=== PATIENT | female | born 1995 | race Caucasian/White ===

== ENCOUNTER 2017-10-25 16:41 | Emergency (ER) | payer MEDICAID, OTHER ==
[~2017-10-25] VITALS: Ht 152.4 cm; Wt 72.7 kg
[~2017-10-25 16:41] MED LIST: IBUP-1984 PO; [UNRECOGNIZED DRUG - OTHER]
[2017-10-25 17:06] LABS: BASOPHILS % (AUTO) 0.4 % (0-1); EOSINOPHILS # (AUTO) 0.2 X10'3 (0-0.9); HEMATOCRIT 40.8 % (35.0-45.0); HEMOGLOBIN 14.6 g/dl (12.0-16.0); LYMPHOCYTES # (AUTO) 4.1 X10'3 (1.1-4.8); LYMPHOCYTES % (AUTO) 35.7 % (21-51); MEAN CORPUSCULAR HGB CONC 35.9 % (33.0-36.5); MEAN CORPUSCULAR VOLUME 94.9 FL (78-98); MEAN PLATELET VOLUME 7.9 FL (7.4-10.4); MONOCYTES # (AUTO) 0.5 X10'3 (0-0.9); NEUTROPHILS # (AUTO) 6.6 X10'3 (1.8-7.7); NEUTROPHILS % (AUTO) 57.9 % (42-75); PLATELET COUNT 279 X10'3 (140-440); RED CELL DISTRIBUTION WIDTH 12.2 % (11.5-14.5); WHITE BLOOD COUNT 11.4 X10'3 (4.5-11.0)
[2017-10-25 17:26] LABS: CLARITY,URINE CLOUDY (Clear); COLOR,URINE YELLOW (Yellow); GLUCOSE, URINE NEGATIVE (Neg); KETONES,URINE NEGATIVE (Neg); LEUKOCYTE ESTERASE ,URINE SMALL (Neg); NITRITES, URINE NEGATIVE (Neg); OCCULT BLOOD,URINE NEGATIVE (Neg); PROTEIN,URINE TRACE mg/dl (Neg); UROBILINOGEN,URINE 0.2 E.U/dL (0.2-1.0)
[2017-10-25 17:27] LABS: ALANINE AMINOTRANSFERASE 27 U/L (12-78); ALBUMIN 4.2 G/DL (3.4-5.0); ALBUMIN/GLOBULIN RATIO 1.2 (1.1-1.5); ALKALINE PHOSPHATASE 71 IU/L (46-116); ANION GAP 9 (8-16); ASPARTATE AMINO TRANSFERASE 16 U/L (10-37); BILIRUBIN,TOTAL 0.4 MG/DL (0.1-1.0); BLOOD UREA NITROGEN 12 MG/DL (7-18); CALCIUM 9.3 MG/DL (8.5-10.1); CHLORIDE 102 MMOL/L (99-107); CREATININE 0.86 MG/DL (0.40-0.90); GLUCOSE 158 MG/DL (70-104); POTASSIUM 3.7 MMOL/L (3.5-5.1); SODIUM 138 MMOL/L (135-145); TOTAL PROTEIN 7.8 G/DL (6.4-8.2); eGFR 81 ML/MIN
[2017-10-25 17:29] LABS: URINE HCG NEGATIVE (NEG)
[2017-10-25 17:40] LABS: UA COLLECTION TYPE CLN CATCH MIDSTREAM
[2017-10-25 17:42] LABS: BACTERIA,URINE 1+ /HPF (Neg); MUCUS STRANDS MODERATE /LPF (Neg); RBC,URINE 0-2 /HPF (0-2); SQUAMOUS EPITHELIAL CELL,UR MANY /LPF (FEW); WBC,URINE 20-30 /HPF (0-4)
[2017-10-25 18:17] LABS: D-DIMER < 0.19 MG/L FEU (0-0.50)
[2017-10-25 18:20] LABS: ETHANOL < 0.010 GM/DL (0.0-0.010)
[2017-10-25 18:56] VITALS: BP 119/79
[2017-10-25 19:26] LABS: URINE AMPHETAMINE SCREEN NEGATIVE (Neg); URINE BARBITUATE SCREEN NEGATIVE (Neg); URINE BENZODIAZEPINES SCREEN NEGATIVE (Neg); URINE CANNABINOID SCREEN NEGATIVE (Neg); URINE COCAINE SCREEN NEGATIVE (Neg); URINE METHADONE SCREEN NEGATIVE (Neg); URINE OPIATE SCREEN NEGATIVE (Neg); URINE PHENCYCLIDINE SCREEN NEGATIVE (Neg)
== END 2017-10-25 19:46 | disposition home or self-care (01) ==
LOC: ER 16:42
DX: R00.0 Tachycardia, unspecified (principal); F17.200 Nicotine dependence, unspecified, uncomplicated; Z88.2 Allergy status to sulfonamides; Z88.6 Allergy status to analgesic agent; Z88.1 Allergy status to other antibiotic agents; Z88.8 Allergy status to other drugs, medicaments and biological substances
CPT/HCPCS: 36415; 71045; 80053; 80305; 80320; 81001; 81025; 84439; 84443; 84484; 85025; 85379; 87088; 93005; 99285

== ENCOUNTER 2020-01-05 12:20 | Emergency (ER) | payer BC, MEDICAID ==
[~2020-01-05] VITALS: Ht 152.4 cm; Wt 111.4 kg
[2020-01-05] MEDS ORDERED: ibuprofen tablet 400 MG TABLET PO ONE (12:50)
[2020-01-05] MEDS ORDERED: normal saline 1000ML IV soln IV ONE (12:55)
[2020-01-05] MEDS ORDERED: ibuprofen 200mg tablet PO ONE (12:55)
--- NOTE | 2020-01-05 13:06 | NUR ---
Karol valente in ED - 01/05/20 at 1306 by NEREYDA Primary MAGAN De La Cruz notified of critical and Dr. Aviles's orders regarding elevated PTT.
[2020-01-05 13:11] LABS: BASOPHILS % (AUTO) 0.2 % (0-1); EOSINOPHILS % (AUTO) 0.1 % (0-6); HEMATOCRIT 41.3 % (35.0-45.0); HEMOGLOBIN 14.1 g/dl (12.0-16.0); LYMPHOCYTES # (AUTO) 2.7 X10'3 (1.1-4.8); LYMPHOCYTES % (AUTO) 20.6 % (21-51); MEAN CORPUSCULAR HEMOGLOBIN 32.8 PG (27.0-31.0); MEAN CORPUSCULAR HGB CONC 34.2 g/dL (33.0-36.5); MEAN CORPUSCULAR VOLUME 95.9 FL (78-98); MEAN PLATELET VOLUME 7.4 FL (7.4-10.4); MONOCYTES # (AUTO) 0.8 X10'3 (0-0.9); MONOCYTES % (AUTO) 6.1 % (2-12); NEUTROPHILS # (AUTO) 9.4 X10'3 (1.8-7.7); PLATELET COUNT 284 X10'3 (140-440); RED BLOOD COUNT 4.31 X10'6 (4.20-5.60); RED CELL DISTRIBUTION WIDTH 12.6 % (11.5-14.5); WHITE BLOOD COUNT 12.9 X10'3 (4.5-11.0)
[2020-01-05 13:20] LABS: PARTIAL THROMBOPLASTIN TIME 32 SECONDS (22-32)
--- NOTE | 2020-01-05 13:21 | NUR ---
FRENCH VASQUEZ SPEAKING TO DR. DUFFY TO RUN A RAPID COVID
[2020-01-05 13:34] LABS: ALANINE AMINOTRANSFERASE 37 U/L (12-78); ALBUMIN 3.7 G/DL (3.4-5.0); ALBUMIN/GLOBULIN RATIO 0.9 (1.1-1.5); ALKALINE PHOSPHATASE 105 IU/L (46-116); ANION GAP 12 (8-16); ASPARTATE AMINO TRANSFERASE 13 U/L (10-37); BILIRUBIN,TOTAL 0.9 MG/DL (0.1-1.0); BLOOD UREA NITROGEN 7 MG/DL (7-18); BUN/CREATININE RATIO 6.6 (6.6-38.0); CALCIUM 8.8 MG/DL (8.5-10.1); CHLORIDE 106 MMOL/L (99-107); CREATININE 1.06 MG/DL (0.40-0.90); GLUCOSE 115 MG/DL (70-104); POTASSIUM 3.7 MMOL/L (3.5-5.1); SODIUM 136 MMOL/L (135-145); TOTAL CARBON DIOXIDE 17.6 MMOL/L (24-32); eGFR 63 ML/MIN
[2020-01-05] MEDS ORDERED: acetaminophen 325mg tablet PO ONE (14:10)
[2020-01-05] MEDS ORDERED: dexamethasone sod phosphate 10mg/ml inj IV STA (14:20)
[2020-01-05 14:41] LABS: URINE HCG NEGATIVE (NEG)
[2020-01-05 14:44] LABS: CLARITY,URINE CLOUDY (Clear); GLUCOSE, URINE NEGATIVE (Neg); KETONES,URINE 40 mg/dl (Neg); LEUKOCYTE ESTERASE ,URINE MODERATE (Neg); NITRITES, URINE NEGATIVE (Neg); OCCULT BLOOD,URINE MODERATE (Neg); PROTEIN,URINE TRACE mg/dl (Neg); UROBILINOGEN,URINE >=8.0 E.U/dL (0.2-1.0)
[2020-01-05 14:46] LABS: COLOR,URINE DARK YELLOW (Yellow); UA COLLECTION TYPE CLN CATCH MIDSTREAM
[2020-01-05 14:48] LABS: MUCUS STRANDS FEW /LPF (Neg); SQUAMOUS EPITHELIAL CELL,UR MANY /LPF (FEW); WBC,URINE 50-100 /HPF (0-4)
[2020-01-05 14:49] LABS: BACTERIA,URINE 2+ /HPF (Neg)
[2020-01-05 16:25] LABS: CLARITY,URINE CLOUDY (Clear); COLOR,URINE YELLOW (Yellow); GLUCOSE, URINE NEGATIVE (Neg); KETONES,URINE NEGATIVE (Neg); LEUKOCYTE ESTERASE ,URINE LARGE (Neg); NITRITES, URINE NEGATIVE (Neg); OCCULT BLOOD,URINE SMALL (Neg); PROTEIN,URINE NEGATIVE (Neg)
[2020-01-05 16:28] LABS: UA COLLECTION TYPE CLN CATCH MIDSTREAM
[2020-01-05 16:29] LABS: BACTERIA,URINE FEW /HPF (Neg); MUCUS STRANDS NONE SEEN /LPF (Neg); RBC,URINE 0-2 /HPF (0-2); SQUAMOUS EPITHELIAL CELL,UR MODERATE /LPF (FEW); WBC,URINE 20-30 /HPF (0-4)
[2020-01-05] MEDS ORDERED: CefTRIAXone 1000mg IM Kit (w/lidocaine diluent) IM ONE (16:35)
[2020-01-05] MEDS ORDERED: DEXA6TAB6 PO (16:36)
[2020-01-05] MEDS ORDERED: CEPH500C5 PO (16:36)
[2020-01-05 17:03] VITALS: BP 116/76
== END 2020-01-05 17:04 | disposition home or self-care (01) ==
LOC: ER 12:20
DX: J06.9 Acute upper respiratory infection, unspecified (principal); B97.4 Respiratory syncytial virus as the cause of diseases classified elsewhere; R50.9 Fever, unspecified; R05 Cough; Z20.828 Contact with and (suspected) exposure to other viral communicable diseases; N39.0 Urinary tract infection, site not specified; F41.9 Anxiety disorder, unspecified; F31.9 Bipolar disorder, unspecified; Z98.890 Other specified postprocedural states; Z72.89 Other problems related to lifestyle; Z88.2 Allergy status to sulfonamides; Z88.1 Allergy status to other antibiotic agents; Z88.6 Allergy status to analgesic agent; Z79.2 Long term (current) use of antibiotics; Z79.899 Other long term (current) drug therapy
CPT/HCPCS: 36415; 71045; 80053; 81001; 81025; 83605; 83880; 84145; 85025; 85610; 85730; 87040; 87088; 93005; 96372; 96374; 99285; J0696; J1100; J7030; U0003

== ENCOUNTER 2021-01-25 23:21 | Emergency (ER) | payer BC ==
[~2021-01-25] VITALS: Ht 152.4 cm; Wt 93.6 kg
[~2021-01-25 23:21] MED LIST changes: +DEXA6TAB6 PO
[2021-01-26] MEDS ORDERED: morphine 4 MG/ML inj SYRINge IM ONE (02:50)
[2021-01-26] MEDS ORDERED: ketorolac trometh. 30mg/ml inj. IM ONE (02:50)
[2021-01-26 04:09] VITALS: BP 142/88
[2021-01-26] MEDS ORDERED: cyclobenzaprine 10mg tablet PO ONE (04:45)
== END 2021-01-26 07:31 | disposition home or self-care (01) ==
LOC: ER 23:22
DX: R51.9 Headache, unspecified (principal); G93.2 Benign intracranial hypertension; F41.9 Anxiety disorder, unspecified; F31.9 Bipolar disorder, unspecified; F17.200 Nicotine dependence, unspecified, uncomplicated; F12.90 Cannabis use, unspecified, uncomplicated; Z72.89 Other problems related to lifestyle; Z88.8 Allergy status to other drugs, medicaments and biological substances; Z88.6 Allergy status to analgesic agent; Z98.890 Other specified postprocedural states; Z88.1 Allergy status to other antibiotic agents; Z88.2 Allergy status to sulfonamides; Z79.899 Other long term (current) drug therapy
CPT/HCPCS: 96372; 99284; J1885; J2270

== ENCOUNTER 2021-02-06 14:24 | Emergency (ER) | payer BC ==
[~2021-02-06] VITALS: Ht 152.4 cm; Wt 95.5 kg
--- NOTE | 2021-02-06 17:55 | NUR ---
pt received in bed 4.
[2021-02-06 18:40] VITALS: BP 139/84
== END 2021-02-06 18:40 | disposition home or self-care (01) ==
LOC: ER 14:24
DX: G93.2 Benign intracranial hypertension (principal); I10 Essential (primary) hypertension; F12.90 Cannabis use, unspecified, uncomplicated; Z72.89 Other problems related to lifestyle; Z95.0 Presence of cardiac pacemaker; Z88.8 Allergy status to other drugs, medicaments and biological substances; Z88.1 Allergy status to other antibiotic agents; Z88.2 Allergy status to sulfonamides; Z79.899 Other long term (current) drug therapy
CPT/HCPCS: 99281

== ENCOUNTER 2023-12-18 14:01 | Outpatient (CLI) | payer MEDICAID | END 2023-12-18 23:59 | disposition home or self-care (01) | LOC: RAD 14:01 | PROVIDERS: ATTEND Nurse Practitioner Family | DX: M25.561 Pain in right knee (principal) | CPT/HCPCS: 73700 ==